=== PATIENT | male | born 1965 | race Caucasian/White ===

== ENCOUNTER 2020-06-24 20:23 | Outpatient (REF) | payer MEDICAID, SELFPAY ==
[2020-06-24 19:20] LABS: Anion Gap 2.3 mmol/L (3-11); BUN 9 mg/dL (7-18); CO2 31.7 mmol/L (21.0-32.0); CREATININE 0.84 mg/dL (0.70-1.30); Calcium 8.1 mg/dL (8.5-10.1); Chloride 97 mmol/L (98-107); Glucose 96 mg/dL (74-106); Potassium 5.2 mmol/L (3.5-5.1); Sodium 131 mmol/L (136-145)
== END 2020-06-24 20:43 ==
LOC: NCHCN 20:23
PROVIDERS: PCP Physician Assistant; Visit Provider Physician Assistant
DX: I10 Essential (primary) hypertension (principal)
CPT/HCPCS: 80048

== ENCOUNTER 2022-10-17 13:35 | Outpatient (REF) | payer MEDICAID, SELFPAY ==
[2022-10-17 20:09] LABS: Hemoglobin A1C 5.1 % (<5.7)
[2022-10-17 20:25] LABS: ALT 40 U/L (16-63); AST 28 U/L (15-37); Albumin 4.4 g/dL (3.4-5.0); Alkaline Phosphatase 97 U/L (46-116); Anion Gap 6.8 mmol/L (3-11); BUN 10 mg/dL (7-18); Bilirubin, Total 0.8 mg/dL (0.2-1.0); CO2 30.2 mmol/L (21.0-32.0); CREATININE 0.8 mg/dL (0.70-1.30); Calcium 8.9 mg/dL (8.5-10.1); Calculated LDL 79 mg/dL (<100); Chloride 94 mmol/L (98-107); Cholesterol 168 mg/dL (<200); Estimated GFR 103.22 (mL/min/1.73m2); Glucose 110 mg/dL (74-106); HDL Cholesterol 76 mg/dL (40-60); Potassium 4.8 mmol/L (3.5-5.1); Sodium 131 mmol/L (136-145); TSH (W/Ref FT4) 2.11 uIU/mL (0.36-3.74); Total Protein 7.6 g/dL (6.4-8.2); Triglyceride 65 mg/dL (<150)
[2022-10-21 06:27] LABS: Benzoylecgonine 2214 ng/mL (Cutoff: 50); Cocaine Negative ng/mL (Cutoff: 50); Cocaine Interpretation Positive.
== END 2022-10-17 13:36 | disposition home or self-care (01) ==
LOC: NCHCN 13:35
PROVIDERS: PCP Physician Assistant; Visit Provider Physician Assistant
DX: I10 Essential (primary) hypertension (principal); F41.0 Panic disorder [episodic paroxysmal anxiety]; R73.03 Prediabetes; R82.5 Elevated urine levels of drugs, medicaments and biological substances
CPT/HCPCS: 80053; 80061; 80353; 83036; 84443

== ENCOUNTER 2023-10-12 12:46 | Outpatient (REF) | payer MEDICAID, SELFPAY ==
[2023-10-12 18:39] LABS: ALT 34 U/L (16-63); AST 19 U/L (15-37); Albumin 3.7 g/dL (3.4-5.0); Alkaline Phosphatase 116 U/L (46-116); Anion Gap 7.7 mmol/L (3-11); BUN 13 mg/dL (7-18); Bilirubin, Total 0.3 mg/dL (0.2-1.0); CO2 29.3 mmol/L (21.0-32.0); CREATININE 0.8 mg/dL (0.70-1.30); Calcium 9.2 mg/dL (8.5-10.1); Chloride 97 mmol/L (98-107); Estimated GFR 102.58 (mL/min/1.73m2); Glucose 111 mg/dL (74-106); Potassium 4.4 mmol/L (3.5-5.1); Sodium 134 mmol/L (136-145); Total Protein 7.4 g/dL (6.4-8.2)
== END 2023-10-12 12:47 | disposition home or self-care (01) ==
LOC: NCHCN 12:46
PROVIDERS: PCP Physician Assistant; Visit Provider Physician Assistant
DX: I10 Essential (primary) hypertension (principal)
CPT/HCPCS: 80053

== ENCOUNTER 2024-10-31 21:48 | Outpatient (REF) | payer BC, SELFPAY ==
[2024-10-31 19:31] LABS: ALT 48 U/L (16-63); AST 37 U/L (15-37); Albumin 4.5 g/dL (3.4-5.0); Alkaline Phosphatase 113 U/L (46-116); Anion Gap 4.9 mmol/L (3-11); BUN 8 mg/dL (7-18); Bilirubin, Total 0.8 mg/dL (0.2-1.0); CO2 30.1 mmol/L (21.0-32.0); CREATININE 0.7 mg/dL (0.70-1.30); Calcium 9.1 mg/dL (8.5-10.1); Chloride 93 mmol/L (98-107); Estimated GFR 106.14 (mL/min/1.73m2); Glucose 113 mg/dL (74-106); LDL CHOLESTEROL 72 mg/dL (<100); Potassium 5.1 mmol/L (3.5-5.1); Sodium 128 mmol/L (136-145); Total Protein 7.7 g/dL (6.4-8.2)
[2024-11-03 10:46] LABS: HIV-1/2 Ag & Ab Screen Negative (Negative)
[2024-11-03 11:04] LABS: Hepatitis C Ab w Rflx HCV PCR Negative (Negative)
== END 2024-10-31 21:49 | disposition home or self-care (01) ==
LOC: NCHCN 21:48
PROVIDERS: PCP Physician Assistant; Visit Provider Physician Assistant
DX: I10 Essential (primary) hypertension (principal); Z11.59 Encounter for screening for other viral diseases; Z11.4 Encounter for screening for human immunodeficiency virus [HIV]
CPT/HCPCS: 80053; 83721; 86803; 87389

== ENCOUNTER 2024-11-12 21:36 | Outpatient (REF) | payer BC, SELFPAY ==
[2024-11-12 21:56] LABS: Abs Immature Grans 0.04 10^3/uL (0.0-0.06); Absolute Lymphocyte Count 1.53 10^3/uL (1.2-3.4); Absolute Monocyte Count 0.52 10^3/uL (0.1-0.8); Absolute Neutrophil Count 4.78 10^3/uL (1.2-6.7); Basophils % 1.4 %; Eosinophils % 2.8 %; HCT 47.1 % (40.0-50.0); HGB 16.4 g/dL (13.5-17.5); Immature Grans % 0.6 %; Lymphocytes % 21.3 %; MCH 33.3 pg (27.0-33.0); MCHC 34.8 % (32.0-36.0); MCV 96 fL (80-95); Monocytes % 7.3 %; Neutrophils % 66.6 %; Platelet Count 350 10^3/uL (130-400); RBC 4.93 10^6/uL (4.36-5.78); RDW 11.8 % (11.8-14.1); RDW-SD 41.3 fL; WBC 7.17 10^3/uL (4.4-10.8)
[2024-11-12 22:15] LABS: CREATININE 0.9 mg/dL (0.70-1.30); Estimated GFR 98.38 (mL/min/1.73m2); Sodium 129 mmol/L (136-145); TSH (W/Ref FT4) 1.71 uIU/mL (0.36-3.74)
[2024-11-12 22:22] LABS: Sodium, Urine 93 mmol/L
[2024-11-13 11:07] LABS: Creatinine,Urine 88.05 mg/dL
== END 2024-11-12 21:37 | disposition home or self-care (01) ==
LOC: NCHCN 21:36
PROVIDERS: PCP Physician Assistant; Visit Provider Physician Assistant
DX: E87.1 Hypo-osmolality and hyponatremia (principal)
CPT/HCPCS: 82565; 84295; 84300; 84443; 85025

== ENCOUNTER 2025-03-31 11:11 | Outpatient (CLI) | payer BC, SELFPAY ==
--- NOTE | 2025-03-31 09:15 | DI.RAD_ITS ---
Exam(s) XR SHOULDER LT COMPLETE 2+V EXAM: XR SHOULDER LT COMPLETE 2+V CLINICAL HISTORY: BILATERAL SHOULDER PAIN. TECHNIQUE: 2D digital imaging was performed of the left shoulder. Two images were obtained. Grashey and axillary views were obtained. COMPARISON: No exams were available for comparison FINDINGS: BONES: No acute fracture is present. No bony destructive lesion is seen. JOINTS: No dislocation present. There is moderately severe narrowing of the glenohumeral joint. There osteophytes seen at the inferior aspect of the humeral head. Mild degenerative changes are seen at the acromioclavicular joint. SOFT TISSUE: There are soft tissue calcifications adjacent to the greater tuberosity suggesting calcific tendinitis. IMPRESSION: Moderately severe osteoarthritis and calcific tendinitis of the left shoulder. DATA REPOSITORY: RADIATION DOSE DELIVERED:
--- NOTE | 2025-03-31 09:15 | DI.RAD_ITS ---
Exam(s) XR SHOULDER RT COMPLETE 2+V EXAM: XR SHOULDER RT COMPLETE 2+V CLINICAL HISTORY: BILATERAL SHOULDER PAIN. TECHNIQUE: 2D digital imaging was performed of the right shoulder. Two images were obtained. Grashey and axillary views were obtained. COMPARISON: No exams were available for comparison FINDINGS: Exam is limited secondary to patient positioning. BONES: No acute fracture is present. No bony destructive lesion is seen. JOINTS: No dislocation present. There is narrowing of the glenohumeral joint. Mild degenerative changes are seen at the acromioclavicular joint. SOFT TISSUE: Soft tissue calcifications are adjacent to the greater tuberosity suggesting calcific tendinitis. IMPRESSION: Degenerative changes and calcific tendinitis of the right shoulder. DATA REPOSITORY: RADIATION DOSE DELIVERED:
== END 2025-03-31 11:12 | disposition home or self-care (01) ==
LOC: DIORS 11:11
PROVIDERS: PCP Physician Assistant; Visit Provider Student in an Organized Health Care Education/Training Program
DX: M25.511 Pain in right shoulder (principal); M25.512 Pain in left shoulder; M75.32 Calcific tendinitis of left shoulder; M19.012 Primary osteoarthritis, left shoulder; M19.011 Primary osteoarthritis, right shoulder
CPT/HCPCS: 73030

== ENCOUNTER 2025-04-03 03:14 | Outpatient (CLI) | payer BC, SELFPAY ==
--- NOTE | 2025-04-03 06:30 | DI.RAD_ITS ---
Exam(s) RF JOINT INJ. FLUORO GUID RAD EXAM: RF JOINT INJ. FLUORO GUID RAD CLINICAL HISTORY: L SHOULDER PAIN,ARTHRITIS LT GLENOHUMERAL JOINT,FLUORO GUIDED INJECTION. The Patient has had persistent left shoulder pain. Noninvasive measures have been tried. To serve as both diagnostic and therapeutic, an injection under fluoroscopy was recommended. The risks of the procedure were discussed with their Orthopedic provider and the patient elected to proceed. TECHNIQUE: 2D and realtime digital imaging was performed. CONTRAST MATERIAL: Water soluble contrast was utilized. COMPARISON: No exams were available for comparison FINDINGS: The Patient was greeted in the fluoroscopy room. The correct side was identified and the consent was reviewed with the patient and was signed. The patient was properly positioned on the fluoroscopy table. The left shoulderwas then prepped and draped. The left shoulder injection starting point was i dentified by the bony landmarks and fluoroscopy. The skin and soft tissue in the tract of the injection was anesthetized with 0.25% Bupivacaine. A spinal needle was then inserted into the left shoulder joint at the level of the glenohumeral joint under fluoroscopic guidance. A small amount of Omnipaque solution was injected to confirm intraarticular placement. Once confirmed, the left shoulder was injected with 5cc of a solution containing 0.25% Bupivacaine and 40 mg of Depo-Medrol. A bandaid was placed on the injection site. The patient tolerated the procedure well and left the department in good condition. IMPRESSION: Successful left shoulder injection. RADIATION DOSE DELIVERED: Ka,r=1.5 mGy
[2025-04-03] MEDS: methylPREDNISolone ACETATE 40 MG/ML VIAL IM ×2 (14:25→14:41)
[2025-04-03] MEDS: Bupivacaine 0.25% Pres-Free 10 ML VIAL IJ ×2 (14:26→14:39)
[2025-04-03] MEDS: Omnipaque 300 MG/ML 10 ML BTL IJ ×2 (14:27→14:37)
--- NOTE | 2025-04-03 14:30 | DI.RAD_ITS ---
Exam(s) RF JOINT INJ. FLUORO GUID RAD EXAM: RF JOINT INJ. FLUORO GUID RAD CLINICAL HISTORY: ARTHRITIS RT GLENOHUMERAL JOINT,M19.011,FLUORO GUIDED INJECTION. The Patient has had persistent right shoulder pain. Noninvasive measures have been tried. To serve as both diagnostic and therapeutic, an injection under fluoroscopy was recommended. The risks of the procedure were discussed with their Orthopedic provider and the patient elected to proceed. TECHNIQUE: 2D and realtime digital imaging was performed. CONTRAST MATERIAL: Water soluble contrast was utilized. COMPARISON: No exams were available for comparison FINDINGS: The Patient was greeted in the fluoroscopy room. The correct side was identified and the consent was reviewed with the patient and was signed. The patient was properly positioned on the fluoroscopy table. The right shoulderwas then prepped and draped. The right shoulder injection starting point was identified by the bony landmarks and fluoroscopy. The skin and soft tissue in the tract of the injection was anesthetized with 0.25% Bupivacaine. A spinal needle was then inserted into the right shoulder joint at the level of the glenohumeral joint under fluoroscopic guidance. A small amount of Omnipaque solution was injected to confirm intraarticular placement. Once confirmed, the right shoulder was injected with 5cc of a solution containing 0.25% Bupivacaine and 40 mg of Depo-Medrol. A bandaid was placed on the injection site. The patient tolerated the procedure well and left the department in good condition. IMPRESSION: Successful right shoulder injection. RADIATION DOSE DELIVERED: Ka,r=1.36 mGy
== END 2025-04-03 03:34 ==
LOC: DI 03:14
PROVIDERS: PCP Physician Assistant; Visit Provider Student in an Organized Health Care Education/Training Program
DX: M19.011 Primary osteoarthritis, right shoulder (principal); M19.012 Primary osteoarthritis, left shoulder
CPT/HCPCS: 20610; 77002; J0665; J1010